=== PATIENT | male | born 1990 | race African-American/Black ===

== ENCOUNTER 2018-01-13 12:04 | Emergency (ER) | payer OTHER ==
[2018-01-13 12:37] VITALS: BP 152/100
--- NOTE | 2018-01-13 16:29 | UC ---
Carmen Becerril Nilda, scribed for Maximino Bowman MD on 01/13/18 at 1259 . Lower Extremity/Ankle HPI - HPI Summary HPI Summary: This patient is a 27 year old M presenting to [facility] accompanied by mother with a chief complaint of constant abscess in the RLE near right lateral malleolus for the past few days. The patient rates the pain 7/10 in severity. Symptoms aggravated and alleviated by nothing. Mother reports patient had arterial bleed a few days ago. His leg was wrapped and now patient is having blood with yellow discharge. He has redness and swelling in the right leg. - History of Current Complaint Chief Complaint: UCSkin Stated Complaint: WOUND ON ANKLE Time Seen by Provider: 01/13/18 12:39 Hx Obtained From: Patient Onset/Duration: Sudden Onset, Lasting Days, Still Present Severity Currently: Severe Pain Intensity: 7 Pain Scale Used: 0-10 Numeric Aggravating Factor(s): Nothing Alleviating Factor(s): Nothing - Allergies/Home Medications Allergies/Adverse Reactions: Allergies Allergy/AdvReac Type Severity Reaction Status Date / Time No Known Allergies Allergy Verified 01/13/18 12:37 Home Medications: Home Medications Unobtainable [Unobtainable] 01/13/18 [History Confirmed 01/13/18] PMH/Surg Hx/FS Hx/Imm Hx - Additional Past Medical History Additional PMH: Arterial bleed in leg - Surgical History Surgical History: None - Family History Known Family History: Negative: Cardiac Disease, Hypertension, Diabetes - Social History Alcohol Use: None Substance Use Type: None Smoking Status (MU): Never Smoked Tobacco Review of Systems Skin: Other - abscess, blood with yellow discharge, and swelling in right leg Respiratory: Other - negative SOB All Other Systems Reviewed And Are Negative: Yes Physical Exam Triage Information Reviewed: Yes Vital Signs: Initial Vital Signs Temp 98.0 F 01/13/18 12:33 Pulse 98 01/13/18 12:33 Resp 18 01/13/18 12:33 BP 152/100 01/13/18 12:33 Pulse Ox 99 01/13/18 12:33 Vital Signs Reviewed: Yes - Additional Comments VITAL SIGNS: Reviewed. GENERAL: Patient is an obese male who is lying comfortable in the stretcher in no acute distress. Patient is not in any acute respiratory distress. HEAD AND FACE: Normocephalic EYES: PERRLA, EOMI x 2. EARS: Hearing grossly intact. MOUTH: Oropharynx within normal limits. NECK: Supple, trachea is midline, no adenopathy, no JVD, no carotid bruit. CHEST: Symmetric, no tenderness at palpation LUNGS: Clear to auscultation bilaterally. No wheezing or crackles. CVS: Regular rate and rhythm, S1 and S2 present, no murmurs or gallops appreciated. ABDOMEN: Soft, non-tender. Bowel sounds are normal. No abdominal abnormal pulsations. EXTREMITIES: He has right upper extremity chronic contraction. RLE with erythema , swelling and abscess around the right malleolus. NEURO: Alert and oriented x 3. No acute neurological deficits. Speech is normal and follows commands. SKIN: Dry and warm Lower Extremity Course/Dx - Course Course Of Treatment: This patient is a 27 year old M presenting to [facility] accompanied by mother with a chief complaint of abscess in the RLE near right lateral malleolus for the past few days. The patient rates the pain 7/10 in severity. Symptoms aggravated and alleviated by nothing. Mother reports patient had arterial bleed a few days ago. His leg was wrapped and now patient is having blood with yellow discharge. He has redness and swelling in the right leg. The patient will be sent to the ED for an I&D. It was not done in the UC because the patient may also have an arterial bleed which is infected. He may need US to rule out DVT since the leg is swollen with erythema. He may benefit from IV abx. He was sent to the ED for further work up and management. Patient s mother will take patient to [facility]. He is stable with a Dx of right leg cellulitis and abscess. Plan of care was discussed with the patient and patient understands and agrees. All questions were answered to patient satisfaction. There were no further complaints or concerns. The patient was found to have increase BP in UC. The patient will follow up with PCP for better control of BP. - Differential Dx/Diagnosis Differential Diagnosis/HQI/PQRI: Bursitis, Cellulitis Provider Diagnoses: right leg cellulitis and abscess Discharge - Discharge Plan Condition: Stable Disposition: TRANS HIGHER LVL OF CARE FAC Discharge Disposition Comment: [facility] Patient Education Materials: Cellulitis (DC), Abscess (ED) Referrals: Violet Adkins MD [Primary Care Provider] - Additional Instructions: Mother will take patient to the ED. FOLLOW UP WITH YOUR PRIMARY CARE PROVIDER WITHIN ONE WEEK FOR HIGH BLOOD PRESSURE NOTED TODAY. The documentation as recorded by the Carmen dowd Nilda accurately reflects the service I personally performed and the decisions made by me, Maximino Bowman MD.
== END 2018-01-13 12:56 | disposition short-term general hospital (02) ==
LOC: UCEAST 12:04
DX: L03.115 Cellulitis of right lower limb (principal)
CPT/HCPCS: 99211; G0463

== ENCOUNTER 2018-01-13 13:13 | Inpatient (IN) | payer OTHER ==
[2018-01-13] MEDS ORDERED: HYDROcodone/ACETAMIN 5-325 MG* 1 TAB PO ONE (15:40)
--- NOTE | 2018-01-13 16:09 | RAD ---
HISTORY: Pain, fluctuant, evaluate for osteomyelitis COMPARISONS: January 08, 2018 VIEWS: 3, Frontal, lateral, and oblique views of the right ankle FINDINGS: BONE DENSITY: Normal. BONES: There is no displaced fracture. There is no appreciable erosion or periosteal reaction. JOINTS: There is no arthropathy. ALIGNMENT: There is no dislocation. SOFT TISSUES: There has been progression of soft tissue swelling most pronounced along the lateral ankle. OTHER FINDINGS: None. IMPRESSION: 1. PROGRESSION OF SOFT TISSUE SWELLING MOST PRONOUNCED ALONG THE LATERAL ANKLE. 2. NO EROSION OR PERIOSTEAL REACTION. PLAIN FILM FINDINGS OF OSTEOMYELITIS ARE RELATIVELY LATE FINDINGS. IF THERE IS PERSISTENT CLINICAL CONCERN FOR OSTEOMYELITIS, RECOMMEND CORRELATION WITH FOLLOWUP IMAGING, THREE-PHASE BONE SCANNING, WHITE BLOOD CELL SCAN, AND/OR MRI OF THE AFFECTED REGION.
[2018-01-13 16:19] LABS: ABS Basophils 0.1 10^3/ul (0-0.2); ABS Eosinophils 0.2 10^3/ul (0-0.6); ABS Lymphocytes 1.8 10^3/ul (1.0-4.8); ABS Monocytes 1.4 10^3/ul (0-0.8); ABS Neutrophils 13.2 10^3/ul (1.5-7.7); ABS Nucleated RBC 0 10^3/ul; Eosinophil % 0.9 % (0-6); Hematocrit 43 % (42-52); Lymphocyte % 10.6 % (25-47); Mean Corpuscular HGB Conc 35 g/dl (31-36); Mean Corpuscular Hemoglobin 29 pg (27-31); Mean Corpuscular Volume 83 fL (80-94); Mean Platelet Volume 8 um3 (7.4-10.4); Nucleated Red Blood Cells % 0.1; Platelet Count 424 10^3/ul (150-450); Red Cell Distribution Width 13 % (10.5-15); White Blood Count 16.6 10^3/ul (3.5-10.8)
[2018-01-13 16:29] LABS: INR 1.15 (0.77-1.02)
[2018-01-13 16:30] LABS: EGFR Non-African American 139.7 (>60)
[2018-01-13] MEDS ORDERED: Vancomycin(*) 1,250 MG in NS 0.9% 250 ML* 250 ML IVPB ONE (16:39)
--- NOTE | 2018-01-13 16:45 | RAD ---
HISTORY: Evaluate for abscess, soft tissue drainage redness, right ankle COMPARISONS: None TECHNIQUE: Multiple transverse and longitudinal ultrasound images were obtained of the area of clinical abnormality of the right ankle using grayscale and color Doppler imaging. FINDINGS: There is a complex fluid collection measuring 4.7 x 5.2 x 3.4 cm in size. IMPRESSION: IN THE AREA OF CLINICAL ABNORMALITY, THERE IS A COMPLEX FLUID COLLECTION MEASURING UP TO 5.2 CM IN SIZE, CONSISTENT WITH ABSCESS IN THE CORRECT CLINICAL SETTING.
[2018-01-13] MEDS ORDERED: Acetaminophen TAB* 325 MG PO PRN (18:11)
[2018-01-13] MEDS ORDERED: Al Hydrox/Mg Hydrox/Simet LIQ* 30 ML UDC PO PRN (18:11)
[2018-01-13] MEDS ORDERED: Dextrose 50% Syringe 50 ML* 25 GM/50 ML SYRINGE IV PUSH PRN (18:24)
[2018-01-13] MEDS ORDERED: Insulin GLARGINE(*) 1 UNITS UNIT SUBCUT SCH (19:00)
[2018-01-13] MEDS ORDERED: Enoxaparin(*) 40 MG/0.4 ML SYR SUBCUT SCH (19:00)
[2018-01-13] MEDS ORDERED: Levofloxacin 500 MG IVPREMIX(* 500 MG/100 ML BAG IVPB SCH (20:00)
[2018-01-13] MEDS: Clindamycin 600 MG IVPREMIX(* 600 MG/50 ML SDV IV SCH (20:52)
[2018-01-13] MEDS: Insulin LISPRO* 1 UNITS UNIT SUBCUT SCH (21:08)
--- NOTE | 2018-01-14 01:53 | HP ---
AMENDED REPORT NOW INCLUDES COSIGNER DESIGNATION - ESIGNED BEFORE ADJUSTMENT CC: Dr. Violet Adkins * HISTORY AND PHYSICAL: DATE OF ADMISSION: 01/13/18 PRIMARY CARE PROVIDER: Dr. Violet Adkins. ATTENDING PHYSICIAN WHILE IN THE HOSPITAL: Caren Cerrato DO * (dictated by Zayda Shanks NP) CHIEF COMPLAINT: Right lower leg redness and swelling. HISTORY OF PRESENT ILLNESS: Mr. Delgado is a 27-year-old male who carries a history of hypertension, diabetes, hypothyroid and depression, who presented to [facility] earlier today for a right lower leg redness and swelling and was sent to the emergency room for further evaluation. The patient and mother states that the ankle started swelling approximately 8 days ago and then yesterday, he developed an abscess on the lateral aspect of his right ankle with some redness. Denies any fevers or chills. The patient states that he has had increased difficulty ambulating due to the swelling in his ankle. The patient also reports that he is noncompliant with his home medications and only takes them on occasion. He has been currently working with the [facility] program in [facility] as they are trying to assist him in taking his medications on a daily basis. The patient has no reports of nausea or vomiting. Denies any diarrhea, denies any abdominal pain, denies any chest pain or shortness of breath. Denies any difficulty urinating, denies loss of consciousness. No fevers were reported, but because of the cellulitis and draining abscess to the right lateral ankle, we were asked by the emergency room to evaluate for admission. PAST MEDICAL HISTORY: Significant for: 1. Hypertension. 2. Diabetes. 3. Hypothyroid. 4. Depression. 5. 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 PAST SURGICAL HISTORY: None. MEDICATIONS: The patient is unsure of his home medications. The mother will contact the hospital with the list of his medications upon her returning home. He does report he takes: 1. Vitamin D. 2. Blood pressure med. 3. A thyroid medication. 4. Some antidepressant medications. FAMILY HISTORY: Mother and father and grandmother all with hypertension. Mother and father both with adult onset diabetes and no cancers were reported in the family. SOCIAL HISTORY: Denies tobacco, alcohol, or drug use. Does not work. Surrogate decision maker in the event he is unable to make his own decisions is his mother, Kriss Delgado, and her phone number is [phone]. REVIEW OF SYSTEMS: There is no documented fever. No significant weight change. There was no double vision. No ear discharge. No rhinorrhea. No sore throat. No thyroid enlargement. Denies any chest pain. There has been no orthopnea or nocturnal dyspnea. There was no abdominal pain. No nausea, vomiting, or diarrhea. No dysuria. No frequencies. There were no seizures, no loss of consciousness. Does report redness and swelling to the right lower leg. Review of 14 systems was completed and all others were negative. PHYSICAL EXAMINATION GENERAL: At this time, Mr. Delgado is a 27-year-old male. He appears obese, lying on the stretcher. He does not appear to be in any distress. VITAL SIGNS: Temperature was 97, heart rate was 97, blood pressure 154/99, O2 saturation was 98% on room air. HEENT: Head is atraumatic, normocephalic. Eyes: EOMs are intact. Sclerae anicteric and not pale. Oral mucosa appears to be moist. NECK: Supple. LUNGS: Clear to auscultation bilaterally. No wheezes, rales, or rhonchi. CARDIAC: S1, S2. Regular rate and rhythm. No murmurs, rubs or gallops. ABDOMEN: Obese, soft, and nontender. Bowel sounds are present x4. EXTREMITIES: Pulses are +2 throughout. He is moving all 4 extremities. He does have limited range of motion of his right arm. Limited range of motion at the elbow and his right wrist is contracted due to a injury defect. NEUROLOGIC: He is awake, alert and oriented x3. His speech is clear. There are no focal deficits. SKIN: Intact. Skin to his right lower leg with redness. There is a small open area draining serosanguineous drainage from the right lateral ankle. There is swelling noted to the right ankle with decreased flexion and extension motion noted. The skin surrounding the wound is erythematous. DIAGNOSTIC STUDIES/LAB DATA: WBCs were 16.6, RBCs 5.20, hemoglobin was 15, hematocrit was 43, platelet count was 424. INR was 1.15. Chemistries: Sodium 133, potassium 3.8, chloride 95, carbon dioxide 26, anion gap was 12, BUN was 8 , glucose was 221, lactic acid was 1.5, calcium 9.8. ASTs were 18, ALTs were 20 , alkaline phosphatase was 74. Total protein was 9.1, albumin 4.0, globin was 5.1. He has an ESR and CRP pending. Right Ankle x-ray. Radiologist impression: 1. Progression of soft tissue swelling, most pronounced along the lateral ankle. 2. No erosion or periosteal reaction. Plain film findings of osteomyelitis are relatively late findings. Recommendation: If there is persistent clinical concern for osteomyelitis, I recommend correlation with following up imaging 3- phase bone scan, white blood cell scan and/or MRI of the affected region. He also had an ultrasound of his right lower leg. Radiologist impression: In the area of clinical abnormality, there was a complex fluid collection measuring up to 5.2 cm in size consistent with an abscess in the correct clinical setting. ASSESSMENT AND PLAN: Mr. Delgado is a 27-year-old male that presented to the emergency room today with complaints of right lower leg redness and right ankle swelling and pain. We were asked to evaluate Mr. Delgado due to the right lower leg redness and draining abscess to the right lateral ankle. He will be admitted under inpatient status for: 1. Cellulitis to the right lower leg. I suspect this is due to the right lateral ankle abscess. He will be placed Clindamycin 600 mg iv every 8 hours. We will repeat a CBC and BMP in the a.m. We will continue to monitor his right lower leg for redness and edema. If redness does not improve or pain becomes worse may want to consider MRI to r/o osteomyelitis. 2. Diabetes. Outpatient, he has poor control. He is noncompliant with his home medications. We will place him on lispro sliding scale and Lantus 10 units q.24 hours. I will add hemoglobin A1c to his current blood work. 3. Hypothyroid. Again, he is noncompliant as an outpatient. I will draw a TSH. He is unsure of his current medication dose. 4. Depression. He is again noncompliant with taking his medication. His mother will contact hospital nursing staff later this evening with his home medications. He is unsure of what he is currently taking. He denies any depression or anxiety at this time. 5. Hypertension. Again, he is noncompliant with his blood pressure medications at home. He is hypertensive here with a blood pressure of 154/99. We will place him on his blood pressure medication after we get an updated medication list. 6. FEN. He can be placed on a consistent carb diet. 7. Code status. He is a full code. 8. DVT prophylaxis. I will put him on Lovenox 40 mg subcu daily. DISPOSITION: He will be inpatient for cellulitis. TIME SPENT: Time spent on this admission was approximately 60 minutes, greater than half that time was spent [id number] with the patient and his mother obtaining history and physical, the other half the time was spent going over the plan of care with the patient and implementing that plan of care. I have discussed this plan with my attendings, Dr. Caren Cerrato, and she is in agreement with my plan. ZAYDA SHANKS, CHRIS [id number]/CPS #: [id number] FRANCHESCA
[2018-01-14] MEDS: Clindamycin 600 MG IVPREMIX(* 600 MG/50 ML SDV IV SCH ×3 (03:27→21:59)
[2018-01-14] MEDS ORDERED: Lisinopril TAB* 5 MG PO ONE (03:38)
[2018-01-14 05:53] LABS: ABS Basophils 0.1 10^3/ul (0-0.2); ABS Eosinophils 0.3 10^3/ul (0-0.6); ABS Lymphocytes 2.6 10^3/ul (1.0-4.8); ABS Monocytes 1.2 10^3/ul (0-0.8); ABS Neutrophils 7.7 10^3/ul (1.5-7.7); ABS Nucleated RBC 0 10^3/ul; Eosinophil % 2.3 % (0-6); Hematocrit 39 % (42-52); Hemoglobin 13.7 g/dl (14.0-18.0); Lymphocyte % 21.8 % (25-47); Mean Corpuscular HGB Conc 35 g/dl (31-36); Mean Corpuscular Hemoglobin 29 pg (27-31); Mean Corpuscular Volume 82 fL (80-94); Mean Platelet Volume 8 um3 (7.4-10.4); Nucleated Red Blood Cells % 0.1; Platelet Count 398 10^3/ul (150-450); Red Blood Count 4.71 10^6/ul (4.0-5.4); Red Cell Distribution Width 13 % (10.5-15); White Blood Count 11.9 10^3/ul (3.5-10.8)
[2018-01-14 05:59] LABS: EGFR Non-African American 158.1 (>60)
[2018-01-14] MEDS ORDERED: ceFAZolin 1 GM VIAL(*) 1 GM in NS 0.9% 50 ML* 50 ML IVPB SCH (07:00)
[2018-01-14] MEDS: Insulin LISPRO* 1 UNITS UNIT SUBCUT SCH ×3 (09:55→17:43)
--- NOTE | 2018-01-14 13:26 | PN ---
Subjective Date of Service: 01/14/18 Interval History: c/o moderate amount of pain to right lower leg with ambulation and palpation around the site. Denies chest pain or shortness of breath. Denies abd pain , n /v/d. Family History: Unchanged from Admission Social History: Unchanged from Admission Past Medical History: Unchanged from Admission Objective Active Medications: Acetaminophen (Tylenol Tab*) 650 mg PO Q4H PRN PRN Reason: FEVER/PAIN Last Admin: 01/13/18 21:11 Dose: 650 mg Al Hydrox/Mg Hydrox/Simethicone (Maalox Plus*) 30 ml PO Q6H PRN PRN Reason: INDIGESTION Dextrose (D50w Syringe 50 Ml*) 12.5 gm IV PUSH .FOR FS < 60 - SS PRN PRN Reason: FS < 60 Enoxaparin Sodium (Lovenox(*)) 40 mg SUBCUT Q24H [facility] Last Admin: 01/13/18 21:07 Dose: 40 mg Clindamycin HCl/Dextrose (Cleocin 600 Mg Ivpremix(*) Sdv) 600 mg in 50 mls @ 100 mls/hr IV Q8H [facility] Last Admin: 01/14/18 12:25 Dose: 100 mls/hr Insulin Glargine (Lantus(*)) 10 units SUBCUT Q24H [facility] Last Admin: 01/13/18 21:09 Dose: 10 units Insulin Human Lispro (Humalog*) 0 units SUBCUT AC LOREN PRN Reason: Protocol Last Admin: 01/14/18 13:04 Dose: 6 unit Potassium Chloride (Klor-Con Liquid*) 40 meq PO DAILY ONE Stop: 01/15/18 13:01 Vital Signs - 8 hr 01/14/18 01/14/18 01/14/18 07:16 08:04 10:39 Temperature 98.2 F Pulse Rate 100 Respiratory 16 16 Rate Blood Pressure 159/90 (mmHg) O2 Sat by Pulse 97 97 Oximetry 01/14/18 12:29 Temperature 97.6 F Pulse Rate 95 Respiratory 18 Rate Blood Pressure 147/70 (mmHg) O2 Sat by Pulse 98 Oximetry Oxygen Devices in Use Now: None Appearance: appears comfortable resting in bed Eyes: No Scleral Icterus Ears/Nose/Mouth/Throat: Clear Oropharnyx, Mucous Membranes Moist Neck: NL Appearance and Movements; NL JVP, Trachea Midline Respiratory: Symmetrical Chest Expansion and Respiratory Effort, Clear to Auscultation Cardiovascular: NL Sounds; No Murmurs; No JVD, No Edema Abdominal: NL Sounds; No Tenderness; No Distention Extremities: No Clubbing, Cyanosis, - - small amount of swelling noted to right ankle, limited ROM with flexion and extension of the right ankle Skin: - - erythema is improving to right ankle and lower leg, moderate amount of serosanguinous drainage noted from right lateral ankle wound. Neurological: Alert and Oriented x 3, NL Muscle Strength and Tone Nutrition: Taking PO's Result Diagrams: 01/14/18 04:48 01/14/18 04:48 Assess/Plan/Problems-Billing Assessment: This is a 27 y.o male who presented to the emergency room for right lower leg redness and swelling and abscess to right lateral ankle which ruptured during ultrasound draining a large amount. the ankle was then I/D in the emergency room. Culture are positive for MRSA and MSSA. Hx of DM and HTN non complaint with medications at home only taking them occasionally. - Patient Problems (1) Cellulitis Current Visit: Yes Status: Acute Code(s): L03.90 - CELLULITIS, UNSPECIFIED SNOMED Code(s): 211902072 Comment: will continue on clindamycin 600 mg IV Q 8 hours Erythema is improving remains afebrile (2) Abscess Current Visit: Yes Status: Acute Code(s): L02.91 - CUTANEOUS ABSCESS, UNSPECIFIED SNOMED Code(s): 625501716 Comment: right lateral ankle continue to drain moderate amount of serosanguinous drainage dry dressing in place Positive for MRSA and MSSA in the wound culture ~ will continue Clindamycin 600 mg IV (3) Diabetes Current Visit: Yes Status: Acute Code(s): E11.9 - TYPE 2 DIABETES MELLITUS WITHOUT COMPLICATIONS SNOMED Code(s): 09060358 Comment: Finger sticks AC and HS HA1C ~11.5 ~ patient is currently non- complaint with cureent home medications stating he only takes them occassionally Lispro sliding scale lantus will increase from 10 units to 15 units blood sugars remain on the 250's to 260's (4) Hypertension Current Visit: Yes Status: Acute Code(s): I10 - ESSENTIAL (PRIMARY) HYPERTENSION SNOMED Code(s): 01943147 Comment: will place on ramipril 10 mg daily for blood pressure at this is his home medications Patient is non - complaint with current home medication (5) Depression Current Visit: Yes Status: Acute Code(s): F32.9 - MAJOR DEPRESSIVE DISORDER , SINGLE EPISODE, UNSPECIFIED SNOMED Code(s): 75770093 Comment: unsure of curent medications patient states that he does not take his medications on a consistent bases Take zoloft 100 mg ~ inconsistently will hold at this time (6) Hypothyroid Current Visit: Yes Status: Acute Code(s): E03.9 - HYPOTHYROIDISM, UNSPECIFIED SNOMED Code(s): 94305206 Comment: takes levothyroxine 75 mcg at home ~ TSH 2.64 (7) DVT prophylaxis Current Visit: Yes Status: Acute Code(s): OAL2859 - SNOMED Code(s): 583871262 Comment: lovenox 40 SUBQ (8) Full code status Current Visit: Yes Status: Acute Code(s): Z78.9 - OTHER SPECIFIED HEALTH STATUS SNOMED Code(s): 598653190 Status and Disposition: inpatient ~ improving will continue clindamycin
[2018-01-14] MEDS: Ramipril CAP* 10 MG PO SCH (17:43)
[2018-01-14] MEDS ORDERED: Insulin GLARGINE(*) 1 UNITS UNIT SUBCUT SCH (21:00)
[2018-01-14] MEDS: Enoxaparin(*) 40 MG/0.4 ML SYR SUBCUT SCH (21:59)
[2018-01-14] MEDS: Atorvastatin* 20 MG TAB PO SCH (22:00)
[2018-01-14] MEDS: Insulin GLARGINE(*) 1 UNITS UNIT SUBCUT SCH (22:00)
--- NOTE | 2018-01-14 22:42 | ED ---
Ubaldo Becerril Stephanie, scribed for Rodo Grande MD on 01/13/18 at 1543 . Lower Extremity - HPI Summary HPI Summary: The pt is a 27 y/o M presenting to the ED with c/o edema on R ankle that began yesterday. Per , the fluctuant area was oozing blood yesterday however, today the site began to drain pus. The pt went to Urgent Care today and was referred to come to the ED. The pt denies fever, fall, or current pain. The pt experiences pain with walking. - History of Current Complaint Chief Complaint: EDExtremityLower Stated Complaint: WOUND RT ANKLE Time Seen by Provider: 01/13/18 15:22 Hx Obtained From: Patient Onset of Pain: Days - 2 Onset/Duration: Still Present Severity Currently: Severe Pain Intensity: 7 Pain Scale Used: 0-10 Numeric Timing: Constant Location: Is Discrete @ - R ankle Associated Signs And Symptoms: Positive: Swelling, Redness. Negative: Fever Aggravating Factor(s): Ambulation Alleviating Factor(s): Rest Able to Bear Weight: Yes - Allergies/Home Medications Allergies/Adverse Reactions: Allergies Allergy/AdvReac Type Severity Reaction Status Date / Time No Known Allergies Allergy Verified 01/13/18 12:37 PMH/Surg Hx/FS Hx/Imm Hx Endocrine/Hematology History: Reports: Hx Diabetes, Hx Thyroid Disease Cardiovascular History: Reports: Hx Hypertension - Surgical History Surgery Procedure, Year, and Place: NONE Infectious Disease History: No Infectious Disease History: Denies: Traveled Outside the [place] in Last 30 Days - Family History Known Family History: Positive: Diabetes - Social History Occupation: Works From/At Home Lives: With Family Alcohol Use: None Substance Use Type: Reports: None Smoking Status (MU): Never Smoked Tobacco Review of Systems Negative: Fever, Chills Negative: Erythema Negative: Sore Throat Negative: Chest Pain Negative: Shortness Of Breath, Cough Negative: Abdominal Pain, Diarrhea, Nausea Negative: dysuria, hematuria Positive: Edema - R ankle, Other - R ankle pain . Negative: Myalgia Negative: Rash Neurological: Other - negative: dizziness All Other Systems Reviewed And Are Negative: Yes Physical Exam - Summary Physical Exam Summary: Constitutional: Well-developed, Well-nourished, Alert. (-) Distressed Skin: Warm, Dry HENT: Normocephalic; Atraumatic Eyes: Conjunctiva normal Neck: Musculoskeletal ROM normal neck. (-) JVD, (-) Stridor, (-) Tracheal deviation Cardio: Rhythm regular, rate normal, Heart sounds normal; Intact distal pulses; The pedal pulses are 2+ and symmetric. Radial pulses are 2+ and symmetric. (-) Murmur Pulmonary/Chest wall: Effort normal. (-) Respiratory distress, (-) Wheezes, (-) Rales Abd: Soft, (-) Tenderness, (-) Distension, (-) Guarding, (-) Rebound Musculoskeletal: lateral malleolus is tender to palpation below area of fluctuance Lymph: (-) Cervical adenopathy Neuro: Alert, Oriented x3 Psych: Mood and affect Normal Triage Information Reviewed: Yes Vital Signs On Initial Exam: Initial Vitals Temp Pulse Resp BP Pulse Ox 97 F 116 18 155/87 98 01/13/18 13:15 01/13/18 13:15 01/13/18 13:15 01/13/18 13:15 01/13/18 13:15 Vital Signs Reviewed: Yes Procedures - Incision and Drainage Site: lateral R ankle Anesthesia: Lidocaine - 1 % Instrument(s): Other - blunt hemostat Packing: Other - none, copious purulent discharge, ulceration approximately 1 cm deep and 2 cm in diameter Diagnostics - Vital Signs Vital Signs Temp Pulse Resp BP Pulse Ox 01/13/18 15:28 103 97 01/13/18 13:15 97 F 116 18 155/87 98 - Laboratory Result Diagrams: 01/13/18 16:00 01/13/18 16:00 Lab Statement: Any lab studies that have been ordered have been reviewed, and results considered in the medical decision making process. - Radiology Xray ankle Xray Interpretation: No Acute Changes Radiology Interpretation Completed By: Radiologist - 1. PROGRESSION OF SOFT TISSUE SWELLING MOST PRONOUNCED ALONG THE LATERAL ANKLE. 2. NO EROSION OR PERIOSTEAL REACTION. PLAIN FILM FINDINGS OF OSTEOMYELITIS ARE RELATIVELY LATE FINDINGS. IF THERE IS PERSISTENT CLINICAL CONCERN FOR OSTEOMYELITIS, RECOMMEND CORRELATION WITH FOLLOWUP IMAGING, THREE-PHASE BONE SCANNING, WHITE BLOOD CELL SCAN, AND/OR MRI OF THE AFFECTED REGION. - Additional Comments Diagnostic Additional Comments: Soft tissue US reveals: IN THE AREA OF CLINICAL ABNORMALITY, THERE IS A COMPLEX FLUID COLLECTION MEASURING UP TO 5.2 CM IN SIZE, CONSISTENT WITH ABSCESS IN THE CORRECT CLINICAL SETTING. Lower Extremity Course/Dx - Course Course Of Treatment: ED physician discussed patient care with Dr. Cerrato who will contact infectious disease for the treatment plan of the pt. The pt will be admitted to the hospital. - Diagnoses Provider Diagnoses: diabetic ulcer and abscess Discharge - Discharge Plan Condition: Stable Disposition: ADMITTED TO [facility] Referrals: Violet Adkins MD [Primary Care Provider] - The documentation as recorded by the Ubaldo dowd Stephanie accurately reflects the service I personally performed and the decisions made by Harjinder hernandez Jerry, MD.
[2018-01-15] MEDS: Clindamycin 600 MG IVPREMIX(* 600 MG/50 ML SDV IV SCH ×3 (04:23→19:37)
[2018-01-15] MEDS: Levothyroxine TAB* 75 MCG TAB PO SCH (05:43)
[2018-01-15] MEDS ORDERED: Levothyroxine TAB* 50 MCG TAB PO SCH (06:00)
[2018-01-15 06:52] LABS: EGFR Non-African American 174.2 (>60)
[2018-01-15 08:17] LABS: Hematocrit 40 % (42-52); Hemoglobin 13.6 g/dl (14.0-18.0); Mean Corpuscular HGB Conc 34 g/dl (31-36); Mean Corpuscular Hemoglobin 28 pg (27-31); Mean Corpuscular Volume 83 fL (80-94); Monocytes % 7 % (0-13); Red Blood Count 4.83 10^6/ul (4.0-5.4); Red Cell Distribution Width 13 % (10.5-15); White Blood Count 8.7 10^3/ul (3.5-10.8)
[2018-01-15] MEDS ORDERED: Lisinopril TAB* 5 MG PO SCH (09:00)
[2018-01-15] MEDS: Insulin LISPRO* 1 UNITS UNIT SUBCUT SCH ×3 (09:50→17:39)
[2018-01-15] MEDS: Atorvastatin* 20 MG TAB PO SCH (09:52)
[2018-01-15] MEDS: Ramipril CAP* 10 MG PO SCH (09:52)
[2018-01-15] MEDS ORDERED: Potassium Chlor TAB* 20 MEQ TAB.ER PO ONE (12:00)
--- NOTE | 2018-01-15 12:10 | PN ---
Subjective Date of Service: 01/15/18 Interval History: Patient seen and examined at bedside. Denies fever, chills, shortness of breath , chest discomfort, N/V/D. Pt reports right ankle discomfort with ambulation and palpation. Pt's mother states that he has previously been referred to [facility] for diabetes education. Family History: Unchanged from Admission Social History: Unchanged from Admission Past Medical History: Unchanged from Admission Objective Active Medications: Acetaminophen (Tylenol Tab*) 650 mg PO Q4H PRN Reason: FEVER/PAIN Al Hydrox/Mg Hydrox/Simethicone (Maalox Plus*) 30 ml PO Q6H PRN Reason: INDIGESTION Atorvastatin Calcium (Lipitor*) 20 mg PO DAILY LOREN Dextrose (D50w Syringe 50 Ml*) 12.5 gm IV PUSH .FOR FS < 60 - SS PRN Reason: FS < 60 Enoxaparin Sodium (Lovenox(*)) 40 mg SUBCUT 2100 LOREN Clindamycin HCl/Dextrose (Cleocin 600 Mg Ivpremix(*) Sdv) 600 mg in 50 mls @ 100 mls/hr IV Q8H LOREN Insulin Glargine (Lantus(*)) 15 units SUBCUT 2100 LOREN Insulin Human Lispro (Humalog*) 0 units SUBCUT AC LOREN Levothyroxine Sodium (Synthroid Tab*) 75 mcg PO 0600 LOREN Ramipril (Altace Cap*) 10 mg PO DAILY [facility] Vital Signs - 8 hr 01/15/18 01/15/18 01/15/18 07:42 07:53 11:18 Temperature 97.7 F 98.0 F Pulse Rate 92 99 Respiratory 28 16 28 Rate Blood Pressure 123/71 151/86 (mmHg) O2 Sat by Pulse 97 97 99 Oximetry Oxygen Devices in Use Now: None Appearance: NAD, laying in bed Ears/Nose/Mouth/Throat: Mucous Membranes Moist Respiratory: Symmetrical Chest Expansion and Respiratory Effort, Clear to Auscultation Cardiovascular: NL Sounds; No Murmurs; No JVD, RRR Abdominal: NL Sounds; No Tenderness; No Distention Extremities: No Edema Skin: - - Open blister to right lateral ankle, no errythema Neurological: Alert and Oriented x 3, - - Right hand contracture Lines/Tubes/Other Access: Clean, Dry and Intact Peripheral IV - site benign Nutrition: Taking PO's Result Diagrams: 01/15/18 06:21 02/19/18 08:38 Assess/Plan/Problems-Billing Assessment: Mr. Delgado is a 27 y.o male who presented to the emergency room for right lower leg redness and swelling and abscess to right lateral ankle which ruptured during ultrasound draining a large amount. the ankle was then I/D in the emergency room. - Patient Problems (1) Cellulitis Code(s): L03.90 - CELLULITIS, UNSPECIFIED SNOMED Code(s): 026803439 Comment: - With abscess to right lateral ankle that has drained - Afebrile and leukocytosis resolved - Wound culture positive for MRSA - Continue on clindamycin 600 mg IV Q 8 hours (2) Hypokalemia Code(s): E87.6 - HYPOKALEMIA SNOMED Code(s): 58307376 Comment: - Will add MG+ to this AMs labs and replace it needed - Will give replacement today and recheck labs in the AM (3) Diabetes Code(s): E11.9 - TYPE 2 DIABETES MELLITUS WITHOUT COMPLICATIONS SNOMED Code(s) : 56852744 Comment: - Glucose 60-220 - HgA1C 11.5 - Patient is currently non- complaint with current home medications stating he only takes them occassionally - Continue lispro sliding scale amd lantus (4) Depression Code(s): F32.9 - MAJOR DEPRESSIVE DISORDER, SINGLE EPISODE, UNSPECIFIED SNOMED Code(s): 27599305 Comment: - Unsure of curent home medications, patient states that he does not take his medications on a consistent bases - Takes zoloft inconsistently, will hold at this time (5) Hypertension Code(s): I10 - ESSENTIAL (PRIMARY) HYPERTENSION SNOMED Code(s): 20365884 Comment: - SBP 120-150's - Patient is non - complaint with current home medication - Continue ramipril (6) Hypothyroid Code(s): E03.9 - HYPOTHYROIDISM, UNSPECIFIED SNOMED Code(s): 51535159 Comment: - TSH 2.64 - Continue levothyroxine (7) HLD (hyperlipidemia) Code(s): E78.5 - HYPERLIPIDEMIA, UNSPECIFIED SNOMED Code(s): 88844757 Comment: - Continue statin (8) DVT prophylaxis Code(s): UWC7066 - SNOMED Code(s): 345411208 Comment: - lovenox 40 SUBQ (9) Full code status Code(s): Z78.9 - OTHER SPECIFIED HEALTH STATUS SNOMED Code(s): 567304562 Status and Disposition: Inpatient. Discharge to home when medically stable.
[2018-01-15] MEDS ORDERED: Potassium Chloride LIQUID* 20 MEQ PACKET PO ONE (13:00)
[2018-01-15] MEDS: Enoxaparin(*) 40 MG/0.4 ML SYR SUBCUT SCH (20:55)
[2018-01-15] MEDS: Insulin GLARGINE(*) 1 UNITS UNIT SUBCUT SCH (21:00)
[2018-01-16] MEDS: Clindamycin 600 MG IVPREMIX(* 600 MG/50 ML SDV IV SCH (04:03)
[2018-01-16] MEDS: Levothyroxine TAB* 75 MCG TAB PO SCH (06:04)
[2018-01-16 07:10] LABS: EGFR Non-African American 167.4 (>60)
[2018-01-16] MEDS: Insulin LISPRO* 1 UNITS UNIT SUBCUT SCH (08:50)
[2018-01-16] MEDS: Ramipril CAP* 10 MG PO SCH (08:51)
[2018-01-16] MEDS: Atorvastatin* 20 MG TAB PO SCH (08:51)
--- NOTE | 2018-01-16 11:39 | PN ---
Subjective Date of Service: 01/16/18 Interval History: Patient seen and examined at bedside. Denies fever, chills, shortness of breath , chest discomfort, N/V/D. Discussed with the Pt the importance of taking his medications as directed. Pt's mother is comfortable with insulin injections using a pen, as his father is on insulin at home. Family History: Unchanged from Admission Social History: Unchanged from Admission Past Medical History: Unchanged from Admission Objective Active Medications: Acetaminophen (Tylenol Tab*) 650 mg PO Q4H PRN Reason: FEVER/PAIN Al Hydrox/Mg Hydrox/Simethicone (Maalox Plus*) 30 ml PO Q6H PRN Reason: INDIGESTION Atorvastatin Calcium (Lipitor*) 20 mg PO DAILY LOREN Dextrose (D50w Syringe 50 Ml*) 12.5 gm IV PUSH .FOR FS < 60 - SS PRN Reason: FS < 60 Enoxaparin Sodium (Lovenox(*)) 40 mg SUBCUT 2100 LOREN Clindamycin HCl/Dextrose (Cleocin 600 Mg Ivpremix(*) Sdv) 600 mg in 50 mls @ 100 mls/hr IV Q8H LOREN Insulin Glargine (Lantus(*)) 15 units SUBCUT 2100 LOREN Insulin Human Lispro (Humalog*) 0 units SUBCUT AC LOREN Levothyroxine Sodium (Synthroid Tab*) 75 mcg PO 0600 LOREN Ramipril (Altace Cap*) 10 mg PO DAILY [facility] Vital Signs - 8 hr 01/16/18 01/16/18 07:37 07:38 Temperature 97.4 F Pulse Rate 89 Respiratory 16 16 Rate Blood Pressure 159/90 (mmHg) O2 Sat by Pulse 99 99 Oximetry Oxygen Devices in Use Now: None Appearance: NAD, sitting up in bed Ears/Nose/Mouth/Throat: Mucous Membranes Moist Respiratory: Symmetrical Chest Expansion and Respiratory Effort, Clear to Auscultation Cardiovascular: NL Sounds; No Murmurs; No JVD, RRR Abdominal: NL Sounds; No Tenderness; No Distention Skin: - - Dressing to right LE clean, dry and intact Neurological: Alert and Oriented x 3, NL Muscle Strength and Tone Lines/Tubes/Other Access: Clean, Dry and Intact Peripheral IV - site benign Nutrition: Taking PO's Result Diagrams: 01/15/18 06:21 01/16/18 06:34 Assess/Plan/Problems-Billing Assessment: Mr. Delgado is a 27 y.o male who presented to the emergency room for right lower leg redness and swelling and abscess to right lateral ankle which ruptured during ultrasound draining a large amount. the ankle was then I/D in the emergency room. - Patient Problems (1) Cellulitis Code(s): L03.90 - CELLULITIS, UNSPECIFIED SNOMED Code(s): 816582209 Comment: - With abscess to right lateral ankle that has drained - Afebrile and leukocytosis resolved - Wound culture positive for MRSA - [place]ge to clindamycin QID for 10 more days (2) Hypokalemia Code(s): E87.6 - HYPOKALEMIA SNOMED Code(s): 36738846 Comment: - Resolved (3) Diabetes Code(s): E11.9 - TYPE 2 DIABETES MELLITUS WITHOUT COMPLICATIONS SNOMED Code(s) : 47213682 Comment: - Glucose 100-260s - HgA1C 11.5 - Patient is currently non- complaint with current home medications stating he only takes them occassionally - Resume metformin and continue lantus 15 units daily (4) Depression Code(s): F32.9 - MAJOR DEPRESSIVE DISORDER, SINGLE EPISODE, UNSPECIFIED SNOMED Code(s): 66586793 Comment: - Unsure of curent home medications, patient states that he does not take his medications on a consistent bases - Resume zoloft (5) Hypertension Code(s): I10 - ESSENTIAL (PRIMARY) HYPERTENSION SNOMED Code(s): 86123183 Comment: - SBP 150-180's - Patient is non - complaint with current home medication - Continue ramipril (increase to 15mg) (6) Hypothyroid Code(s): E03.9 - HYPOTHYROIDISM, UNSPECIFIED SNOMED Code(s): 14062072 Comment: - TSH 2.64 - Continue levothyroxine (7) HLD (hyperlipidemia) Code(s): E78.5 - HYPERLIPIDEMIA, UNSPECIFIED SNOMED Code(s): 20932848 Comment: - Continue statin (8) DVT prophylaxis Code(s): YSQ3559 - SNOMED Code(s): 857098950 (9) Full code status Code(s): Z78.9 - OTHER SPECIFIED HEALTH STATUS SNOMED Code(s): 582700858 Status and Disposition: Inpatient. Stable for discharge to home today.
[2018-01-16 11:53] VITALS: BP 156/101
--- NOTE | 2018-01-17 15:55 | DS ---
CC: Dr. Violet Adkins * DISCHARGE SUMMARY: DATE OF ADMISSION: 01/13/18 DATE OF DISCHARGE: 01/16/18 ATTENDING PHYSICIAN: Dr. Kendell Miles * (dictated by Dalton Cote NP). PRIMARY CARE PROVIDER: Dr. Violet Adkins. PRIMARY DIAGNOSES: 1. Right lower extremity cellulitis, with methicillin-resistant Staphylococcus aureus abscess. 2. Uncontrolled diabetes mellitus. 3. Hypertension. 4. Medical noncompliance. 5. Mild hyponatremia and hypokalemia, resolved. SECONDARY DIAGNOSES: 1. Hypothyroidism. 2. Depression. STUDIES WHILE IN THE HOSPITAL: 1. Right ankle x-ray on 01/13/18. Radiologist's impression: Progression of soft tissue swelling most pronounced along the lateral ankle. No erosion or periosteal reaction. Plain film findings of osteomyelitis are relatively late findings. If there is persistent clinical concern for osteomyelitis, recommend correlation with followup imaging. Three phase bone scanning, white blood cell scan, and/or MRI of the affected region. 2. Right lower extremity soft tissue ultrasound on 01/13/18. Radiologist's impression: In the area of clinical abnormality, there is a complex fluid collection measuring up to 5.2 cm in size, consistent with abscess in the correct clinical setting. DISCHARGE MEDICATIONS: New home medications: 1. Clindamycin 300 mg oral every 6 hours for 10 more days to complete a 14-day course of treatment. 2. Basaglar KwikPen 15 units subcutaneous at bedtime. 3. Pen needles. 4. FreeStyle Lite glucometer. 5. Lancets. 6. FreeStyle glucometer test strips. Continued home medications: 1. Torsemide 20 mg oral daily as needed for swelling. 2. Zoloft 100 mg oral daily. 3. Levothyroxine 75 mcg oral daily. 4. Atorvastatin 20 mg oral daily. 5. Metformin 500 mg oral twice daily. Changed medications: Ramipril increased from 10 mg to 15 mg oral daily. HISTORY OF PRESENT ILLNESS/HOSPITAL COURSE: Mr. Delgado is a 27-year-old male with past medical history significant for hypertension, diabetes, hypothyroidism , depression and medical noncompliance, who presented initially to urgent care with a right lower extremity redness and swelling and was further referred to the emergency room for further evaluation. Per the patient and his mother, his ankle swelling started approximately 8 days prior and then he developed an abscess on the lateral aspect of his right ankle with redness. He denied any fevers, chills. He had had increased difficulty ambulating due to the swelling and discomfort in his ankle. The patient reported medical noncompliance at home with his medication and only takes them occasionally. He has been working with the [employer] program in [facility] and they are trying to assist him in taking his medications on a daily basis. While in the emergency room, the patient had an x-ray showing soft tissue swelling and an ultrasound showing approximately 5.2 cm abscess. He had labs showing a white blood cell count of 16.6, ESR of 92, and a CRP of 239. Hospitalists were asked to evaluate the patient for admission. The patient's abscess was I and D'd. The patient's wound culture was growing MRSA. He had blood cultures that were negative for no growth on day 3. While in the hospital, the patient was treated with clindamycin IV. His leukocytosis resolved. His CRP was trending down. He had 2 episodes of hypokalemia, received potassium replacements and that resolved. His glucoses have been elevated I suspect secondary to his infection. His hemoglobin A1c was 11.5. The patient has been encouraged to be medically compliant. He is also noted to be hypertensive during his stay with systolic blood pressures in the 150s to 180s. The patient's mother states she was comfortable with insulin injections as the patient's father uses an insulin pen at home. Mr. Delgado is stable for discharged home today. Vital signs are as follows: Temperature 98.0, heart rate 96, respiratory rate 18, O2 sat 97% on room air, blood pressure 156/101. DISCHARGE PLAN: Mr. Delgado will be discharged to home. Activity as tolerated. He should be on a consistent carbohydrate heart healthy diet. In regards to his cellulitis, he has been continued on clindamycin 300 mg oral every 6 hours for 10 more days to complete a 14-day course. In regards to his diabetes, I have started him on Basaglar insulin 15 units subcutaneous daily at bedtime. He has been asked to check his glucoses a.c. and h.s. and to continue his metformin. The patient's mother states that he has been trying to be set up with [facility] for [employer]. I have provided them with the phone number and asked them to please call for a followup appointment. For the patient's high blood pressure, I increased his ramipril to 15 mg oral daily. The patient has a followup appointment with his primary, Dr. Adkins on 01/17/18 at 10 a.m. The patient has been asked to change the dressing to his right lower extremity daily. POINTS OF DISCUSSION AT DISCHARGE: The patient needs to be encouraged to be compliant with his medications. Please continue to monitor his diabetes. He may need additional medications such as glipizide. The patient has been asked to return to the emergency room for any chest pain or shortness of breath. This is a complex medical history and hospital stay. For further details, please see the entire medical record. TIME SPENT: Time for this discharge was approximately 50 minutes, greater than half of that was spent with the patient and his mother discussing discharge plans and instructions. CONDITION ON DISCHARGE: Stable. DALTON RESENDIZ NP [id number]/[facility] #: [id number] [place]
== END 2018-01-16 12:45 | disposition home or self-care (01) | DRG 383 ==
LOC: ED 13:13 → MED 18:11
PROVIDERS: ADMIT Nurse Practitioner; ATTEND Internal Medicine
PROC: 0H9KXZX Drainage of Right Lower Leg Skin, External Approach, Diagnostic (ICD-10-PCS; principal; 2018-01-13)
DX: L02.415 Cutaneous abscess of right lower limb (principal); E11.65 Type 2 diabetes mellitus with hyperglycemia; E87.1 Hypo-osmolality and hyponatremia; L03.115 Cellulitis of right lower limb; I10 Essential (primary) hypertension; B95.62 Methicillin resistant Staphylococcus aureus infection as the cause of diseases classified elsewhere; E03.9 Hypothyroidism, unspecified; F32.9 Major depressive disorder, single episode, unspecified; E87.6 Hypokalemia; M24.531 Contracture, right wrist; Z91.14 Patient's other noncompliance with medication regimen; Z79.899 Other long term (current) drug therapy; Z82.49 Family history of ischemic heart disease and other diseases of the circulatory system; Z83.3 Family history of diabetes mellitus
CPT/HCPCS: 36415; 80048; 80053; 82947; 83036; 83605; 83735; 84443; 85025; 85610; 85652; 85730; 86140; 87040; 87070; 87077; 87186; 87205; 87640; 87641; 99284; A9270-GY; J1650; J1956; J3370

== ENCOUNTER 2018-01-17 04:30 | Emergency (ER) | payer OTHER ==
[2018-01-17] MEDS ORDERED: Lidocaine 2% VISCOUS* 15 ML UDC PO ONE (05:13)
[2018-01-17] MEDS ORDERED: Al Hydrox/Mg Hydrox/Simet LIQ* 30 ML UDC PO ONE (05:13)
[2018-01-17] MEDS ORDERED: Famotidine TAB* 20 MG PO ONE (05:14)
[2018-01-17] MEDS ORDERED: NS 0.9% 1000 ML* 1,000 ML IV ONE (05:55)
[2018-01-17 06:24] LABS: ABS Basophils 0.1 10^3/ul (0-0.2); ABS Eosinophils 0.3 10^3/ul (0-0.6); ABS Lymphocytes 2.9 10^3/ul (1.0-4.8); ABS Monocytes 0.7 10^3/ul (0-0.8); ABS Neutrophils 5.2 10^3/ul (1.5-7.7); ABS Nucleated RBC 0 10^3/ul; Eosinophil % 3.3 % (0-6); Hematocrit 41 % (42-52); Lymphocyte % 31.6 % (25-47); Mean Corpuscular HGB Conc 34 g/dl (31-36); Mean Corpuscular Hemoglobin 29 pg (27-31); Mean Corpuscular Volume 83 fL (80-94); Mean Platelet Volume 8 um3 (7.4-10.4); Nucleated Red Blood Cells % 0; Platelet Count 476 10^3/ul (150-450); Red Blood Count 4.89 10^6/ul (4.0-5.4); Red Cell Distribution Width 13 % (10.5-15); White Blood Count 9.2 10^3/ul (3.5-10.8)
[2018-01-17 06:40] LABS: INR 0.97 (0.77-1.02)
[2018-01-17 06:44] LABS: EGFR Non-African American 139.7 (>60)
[2018-01-17] MEDS ORDERED: Iodixanol* (CONTRAST) 320 MG/ML 100 ML SDV IV ONE (07:09)
--- NOTE | 2018-01-17 07:11 | ED ---
Carmen Becerril Nilda, scribed for Adrian Schrader MD on 01/17/18 at 0517 . HPI Chest Pain - HPI Summary HPI Summary: This patient is a 27 year old M presenting [facility] accompanied by mother with a chief complaint of intermittent midsternal and right sided CP since 399. Mother states pt noted CP began as pain in esophageal area. The patient rates the pain 7/10 in severity. Symptoms aggravated and alleviated by nothing. Patient denies cough, nausea, abd pain, injury, SOB, and sore throat. Mother states patient was released yesterday from [facility] [place] after abscess drainage on right ankle. Medications include Clindamycin, Metformin, and Lasix. - History of Current Complaint Chief Complaint: EDChestPainROMI Time Seen by Provider: 01/17/18 05:04 Hx Obtained From: Patient, Family/Tool Crib Attendant - mother Onset/Duration: Started Hours Ago, Still Present Timing: Intermittent Pain Intensity: 7 Pain Scale Used: 0-10 Numeric Chest Pain Location: Mid Sternal, Left Lateral Chest Pain Radiates: No Aggravating Factor(s): Nothing Alleviating Factor(s): Nothing Associated Signs and Symptoms: Positive: Other: - cough, nausea, abd pain, injury, SOB, sore throat - Additional Pertinent History Primary Care Physician: [id number] - Allergy/Home Medications Allergies/Adverse Reactions: Allergies Allergy/AdvReac Type Severity Reaction Status Date / Time No Known Allergies Allergy Verified 01/13/18 12:37 PMH/Surg Hx/FS Hx/Imm Hx Endocrine/Hematology History: Reports: Hx Diabetes, Hx Thyroid Disease Cardiovascular History: Reports: Hx Hypertension History: Reports: Other Problems/Disorders - Blood sugar being high hurt kidneys Sensory History: Reports: Hx Contacts or Glasses Denies: Hx Hearing Aid Opthamlomology History: Reports: Hx Contacts or Glasses Psychiatric History: Reports: Hx Anxiety - Surgical History Surgery Procedure, Year, and Place: NONE Infectious Disease History: Yes Infectious Disease History: Denies: Traveled Outside the [place] in Last 30 Days - Family History Known Family History: Positive: Diabetes - Social History Alcohol Use: None Substance Use Type: Reports: None Smoking Status (MU): Never Smoked Tobacco Review of Systems Negative: Sore Throat Positive: Chest Pain Negative: Shortness Of Breath, Cough Negative: Abdominal Pain, Nausea Positive: Other - negative injury Positive: Other - abscess drainiage on right ankle All Other Systems Reviewed And Are Negative: Yes Physical Exam - Summary Physical Exam Summary: Appearance: Well appearing, no pain distress, Obesity Skin: warm, dry, reflects adequate perfusion, Skin marker on RLE with no redness near border. Wound on lateral aspect of the lower leg, which is draining clear fluid. 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, bilat LE edema Neuro: mild cognitive impairment Triage Information Reviewed: Yes Vital Signs On Initial Exam: Initial Vitals Temp Pulse Resp BP Pulse Ox 97.4 F 105 20 152/93 97 01/17/18 04:38 01/17/18 04:38 01/17/18 04:38 01/17/18 04:38 01/17/18 04:38 Vital Signs Reviewed: Yes Diagnostics - Vital Signs Vital Signs Temp Pulse Resp BP Pulse Ox 01/17/18 04:38 97.4 F 105 20 152/93 97 - Laboratory Lab Results: Lab Results 01/17/18 01/17/18 01/17/18 Range/Units 06:07 06:07 06:07 WBC 9.2 (3.5-10.8) 10^3/ul RBC 4.89 (4.0-5.4) 10^6/ul Hgb 14.0 (14.0-18.0) g/dl Hct 41 L (42-52) % MCV 83 (80-94) fL MCH 29 (27-31) pg MCHC 34 (31-36) g/dl RDW 13 (10.5-15) % Plt Count 476 H D (150-450) 10^3/ul MPV 8 (7.4-10.4) um3 Neut % (Auto) 56.2 (38-83) % Lymph % (Auto) 31.6 (25-47) % Trimble % (Auto) 7.7 (1-9) % Eos % (Auto) 3.3 (0-6) % Baso % (Auto) 1.2 (0-2) % Absolute Neuts (auto) 5.2 (1.5-7.7) 10^3/ul Absolute Lymphs (auto) 2.9 (1.0-4.8) 10^3/ul Absolute Monos (auto) 0.7 (0-0.8) 10^3/ul Absolute Eos (auto) 0.3 (0-0.6) 10^3/ul Absolute Basos (auto) 0.1 (0-0.2) 10^3/ul Absolute Nucleated RBC 0 10^3/ul Nucleated RBC % 0 INR (Anticoag Therapy) 0.97 (0.77-1.02) APTT 33.5 (26.0-36.3) seconds Sodium 132 L (133-145) mmol/L Potassium 3.6 (3.5-5.0) mmol/L Chloride 97 L (101-111) mmol/L Carbon Dioxide 27 (22-32) mmol/L Anion Gap 8 (2-11) mmol/L BUN 9 (6-24) mg/dL Creatinine 0.69 (0.67-1.17) mg/dL Est GFR ( Amer) 179.7 (>60) Est GFR (Non-Af Amer) 139.7 (>60) BUN/Creatinine Ratio 13.0 (8-20) Glucose 305 H (70-100) mg/dL Lactic Acid (0.5-2.0) mmol/L Calcium 9.7 (8.6-10.3) mg/dL Total Bilirubin 0.40 (0.2-1.0) mg/dL AST 62 H (13-39) U/L ALT 57 H (7-52) U/L Alkaline Phosphatase 57 (34-104) U/L Troponin I 0.00 (<0.04) ng/mL Total Protein 8.2 (6.4-8.9) g/dL Albumin 3.5 (3.2-5.2) g/dL Globulin 4.7 H (2-4) g/dL Albumin/Globulin Ratio 0.7 L (1-3) 01/17/18 Range/Units 06:07 WBC (3.5-10.8) 10^3/ul RBC (4.0-5.4) 10^6/ul Hgb (14.0-18.0) g/dl Hct (42-52) % MCV (80-94) fL MCH (27-31) pg MCHC (31-36) g/dl RDW (10.5-15) % Plt Count (150-450) 10^3/ul MPV (7.4-10.4) um3 Neut % (Auto) (38-83) % Lymph % (Auto) (25-47) % Trimble % (Auto) (1-9) % Eos % (Auto) (0-6) % Baso % (Auto) (0-2) % Absolute Neuts (auto) (1.5-7.7) 10^3/ul Absolute Lymphs (auto) (1.0-4.8) 10^3/ul Absolute Monos (auto) (0-0.8) 10^3/ul Absolute Eos (auto) (0-0.6) 10^3/ul Absolute Basos (auto) (0-0.2) 10^3/ul Absolute Nucleated RBC 10^3/ul Nucleated RBC % INR (Anticoag Therapy) (0.77-1.02) APTT (26.0-36.3) seconds Sodium (133-145) mmol/L Potassium (3.5-5.0) mmol/L Chloride (101-111) mmol/L Carbon Dioxide (22-32) mmol/L Anion Gap (2-11) mmol/L BUN (6-24) mg/dL Creatinine (0.67-1.17) mg/dL Est GFR ( Amer) (>60) Est GFR (Non-Af Amer) (>60) BUN/Creatinine Ratio (8-20) Glucose (70-100) mg/dL Lactic Acid 1.7 (0.5-2.0) mmol/L Calcium (8.6-10.3) mg/dL Total Bilirubin (0.2-1.0) mg/dL AST (13-39) U/L ALT (7-52) U/L Alkaline Phosphatase (34-104) U/L Troponin I (<0.04) ng/mL Total Protein (6.4-8.9) g/dL Albumin (3.2-5.2) g/dL Globulin (2-4) g/dL Albumin/Globulin Ratio (1-3) Result Diagrams: 01/17/18 06:07 01/17/18 06:07 Lab Statement: Any lab studies that have been ordered have been reviewed, and results considered in the medical decision making process. - EKG 444 Cardiac Rate: NL EKG Rhythm: Sinus Rhythm - [address] Segment: Normal EKG Interpretation: nl axis interval Re-Evaluation - Re-Evaluation First Eval Re-Evaluation Time: 05:51 Comment: Chest pain is back after 10 steps of ambulation. Chest Pain Course/Dx - Course Assessment/Plan: This patient is a 27 year old M presenting to [facility] accompanied by mother with a chief complaint of intermittent midsternal and right sided CP since 399. Mother states pt noted CP began as pain in esophageal area. The patient rates the pain 7/10 in severity. Symptoms aggravated and alleviated by nothing. Patient denies cough, nausea, abd pain, injury, SOB, and sore throat. Mother states patient was released yesterday from [facility] [facility] after abscess drainage on right ankle. Medications include Clindamycin, Metformin, and Lasix. An EKG reveals NSR, 97 bpm, nl axis interval, nl ST. Fleeting improvement with GI cocktail. Walked and developed CP again. CTPE given PE risk. Pt is s/o to Dr. Smith, pending dispo, awaiting CTA chest. - Diagnoses Provider Diagnoses: Atypical chest pain, Hyperglycemia - Provider Notifications Discussed Care Of Patient With: Alexsander Smith - assumed care at 0700 Discharge - Discharge Plan Condition: Stable Disposition: OTHER Discharge Disposition Comment: Pt is s/o to Dr. Smith, pending dispo, awaiting CTA chest. Referrals: Violet Adkins MD [Primary Care Provider] - The documentation as recorded by the Carmen dowd Nilda accurately reflects the service I personally performed and the decisions made by Macrina hernandez Kirk, MD.
--- NOTE | 2018-01-17 08:38 | RAD ---
Indication: Shortness of breath. Contrast: Administered 96.1 ml of VISIPAQUE 320 mg/ml CTA of the chest was performed after IV contrast administration. Coronal and sagittal reconstructed images were obtained. The pulmonary arterial tree is well opacified. There are no filling defects present to suggest pulmonary embolus. The heart demonstrates no pericardial effusion. The aorta demonstrates no evidence of aneurysmal dilatation. No evidence of aortic dissection is noted. The heart is of normal size without evidence of pericardial effusion. The trachea and major bronchi appear patent. No evidence of alveolar consolidation is noted. No pleural fluid is identified. The liver demonstrates diffuse decrease in density consistent with hepatic steatosis. The spleen is normal in size. IMPRESSION: No evidence of pulmonary embolus is noted. No pulmonary nodules are identified. There is hepatic steatosis noted.
[2018-01-17] MEDS ORDERED: Ketorolac INJ* 30 MG/ML 1 ML VIAL IV ONE (09:53)
[2018-01-17 11:45] VITALS: BP 124/80
--- NOTE | 2018-01-17 14:07 | ED ---
Travis Becerril Angela, scribed for Alexsander Smith MD on 01/17/18 at 0742 . Progress - Progress Note Progress Note: This pt was signed out by Dr. Schrader, pending disposition, awaiting CTA. CTA chest/thorax, as read by radiologist: IMPRESSION: No evidence of pulmonary embolus is noted. No pulmonary nodules are identified. There is hepatic steatosis noted. Dr. Smith has reviewed this radiology report. Pt will be discharged to home in stable condition. Condition: Stable Disposition: Home Re-Evaluation - Re-Evaluation First Eval Re-Evaluation Time: 09:50 Comment: I reviewed the lab and CTA results with the pt. Course/Dx - Course Course Of Treatment: Medications reviewed. Allergies noted. In the ED course, the pt was given Toradol. PAIN IMPROVED AFTER TORADOL. TROPONIN NEG X 2. DISCUSSED RESULTS WITH PATIENT AND HIS MOTHER. THEY HAVE INSULIN FOR GLUCOSE CONTROL. F/U PMD; RETURN IF WORSE. - Diagnoses Provider Diagnoses: Atypical chest pain, Hyperglycemia The documentation as recorded by the Travis dowd Angela accurately reflects the service I personally performed and the decisions made by me, Alexsander Smith MD.
== END 2018-01-17 11:42 | disposition home or self-care (01) ==
LOC: ED 04:30
DX: R07.89 Other chest pain (principal); I10 Essential (primary) hypertension; E11.65 Type 2 diabetes mellitus with hyperglycemia; Z79.84 Long term (current) use of oral hypoglycemic drugs; Z79.899 Other long term (current) drug therapy
CPT/HCPCS: 36415; 71275; 80053; 83605; 84484; 85025; 85610; 85730; 93005; 96361; 96374; 99284; A9270-GY; J1885; Q9967